=== PATIENT | male | born 1945 | race Caucasian/White ===

== ENCOUNTER 2023-03-20 08:19 | Day surgery (SDC) | payer MEDICARE ==
[~2023-03-20] VITALS: Ht 165.1 cm; Wt 78.0 kg
[2023-03-20] VITALS (12 sets, daily range): BP systolic 103–155; BP diastolic 41–110
[~2023-03-20 08:19] MED LIST: Aspir 8181 MG PO; METO50ER PO; NITR.4SL SL; TUMS500 MG PO; ZESTRIL40 M1 PO
--- NOTE | 2023-03-20 10:46 | NUR ---
PT BACK TO RECOVERY ROOM.
--- NOTE | 2023-03-20 11:03 | NUR ---
PT BACK TO RECOVERY ROOM FROM LAB. PT A&Ox4. PT SITTING UP IN RECLINER DRINKING COFFEE. FAMILY AT BEDSIDE.
--- NOTE | 2023-03-20 11:04 | NUR ---
AMLODIPINE SCRIPT CALLED TO [employer].
--- NOTE | 2023-03-20 11:59 | NUR ---
PT GIVEN LUNCH TRAY. 2 CC REMOVED FROM TR BAND. SITE SOFT AND NON-TENDER.
--- NOTE | 2023-03-20 12:08 | NUR ---
2CC REMOVED FROM TR BAND. SITE SOFT AND NON-TENDER PER PT. NO BLEEDING NOTED.
--- NOTE | 2023-03-20 12:23 | NUR ---
2CC REMOVED FROM TRBAND. SITE SOFT AND NON-TENDER. NO BLEEDING NOTED. PT FINISHED EATING LUNCH.
--- NOTE | 2023-03-20 12:42 | NUR ---
2CC REMOVED FROM TR BAND.
--- NOTE | 2023-03-20 12:48 | NUR ---
HEMATOMA NOTED ABOVE TR BAND. TR BAND REMOVED AND PRESSURE DRESSING APPLIED TO WRIST BY AALIYAH RM. NO BLEEDING NOTED.
--- NOTE | 2023-03-20 12:57 | NUR ---
SITE AROUND DRESSING SOFT AND NON-TENDER PER PT. NO BLEEDING NOTED.
--- NOTE | 2023-03-20 14:28 | NUR ---
DISCHARGE INSTRUCTIONS REVIEWED ALL QUESTIONS ANSWERED. PRESSURE DRESSING REMOVED FROM RIGHT RADIAL SITE; NO HEMATOMA, NO BLEEDING SOFT NON-TENDER WITH POLYMEM IN PLACE AND RIGHT WRIST BOARD IN PLACE. 20 G IV REMOVED FROM R AC WITH INTACT CANNULA. PT AMBULATED TO BR TO VOID. PT ESCORTED OUT VIA WHEELCHAIR ESCORT.
== END 2023-03-20 15:59 | disposition home or self-care (01) ==
LOC: MHTC 08:19
DX: I25.118 Atherosclerotic heart disease of native coronary artery with other forms of angina pectoris (principal); R07.9 Chest pain, unspecified; I35.0 Nonrheumatic aortic (valve) stenosis; E78.5 Hyperlipidemia, unspecified; N18.9 Chronic kidney disease, unspecified; I12.9 Hypertensive chronic kidney disease with stage 1 through stage 4 chronic kidney disease, or unspecified chronic kidney disease
CPT/HCPCS: 76937; 85347; 93454; 93571; 99152; 99153; C1769; C1887; C1894; J1644; J2250; J3010; J7030; J7050; Q9967

== ENCOUNTER 2024-08-19 06:13 | Day surgery (SDC) | payer MEDICARE ==
[~2024-08-19] VITALS: Ht 167.6 cm; Wt 75.1 kg
[~2024-08-19 06:13] MED LIST changes: +Balanced Salt Epinephrine Irrigation Solution 500 mL IR SCH; +Diazepam 5 MG Tab PO PRN; +Diazepam 5 MG Tab PO SCH; +Lidocaine HCl/Pf 1% 5 ML VIAL XX SCH; +Moxifloxacin HCL 0.5 MG/0.1 ML 0.4MLSYR RIGHTEYE SCH; +Ondansetron 4 MG SoluTab MM PRN; +PHENYLEPHRINE\\TROPICAMIDE\\TETRACAINE OPHTHALMIC DILATING SOLN RIGHTEYE PRN; +Povidone-Iodine 450 DROP/30 ML Solution ONE; +Povidone-Iodine 450 DROP/30 ML Solution RIGHTEYE SCH; +Tetracaine HCl/Pf 0.5% Opth Soln 4 ml ONE; +Triamcinolone Inj Susp 40 MG / ML 1ML Vial INJ SCH
[2024-08-19] MEDS ORDERED: Diazepam 10 MG Tab ONE (06:27)
--- NOTE | 2024-08-19 06:42 | NUR ---
08/19/24 0642 Hyacinth Cox 0642: PER PATIENT ANXIETY IS 05/18
[2024-08-19] MEDS ORDERED: METOPROLOL TART25 MG PO (06:50)
[2024-08-19] MEDS ORDERED: LISI20 PO (06:51)
[2024-08-19] MEDS ORDERED: RANOLAZINE ER500 M2 PO (06:52)
[2024-08-19] MEDS ORDERED: Triamcinolone Inj Susp 40 MG / ML 1ML Vial ONE ×2 (06:52→07:16)
[2024-08-19] MEDS ORDERED: Lidocaine HCl/Pf 1% 5 ML VIAL ONE (06:53)
[2024-08-19] MEDS ORDERED: Tetracaine HCl 0.5% Opth Soln 15 ml RIGHTEYE ONE (07:26)
--- NOTE | 2024-08-19 07:29 | NUR ---
08/19/24 0729 Mirtha Souza HR 54 R 20 O2 100 ON 8 L BLOW BY O2 BP 182/61 PT STATES NO DISCOMFORT, NO SIGN OF DISTRESS AT THIS TIME.
[2024-08-19 08:10] VITALS: BP 158/73
== END 2024-08-19 08:04 | disposition home or self-care (01) ==
LOC: ORSCSDS 06:13
PROVIDERS: Ophthalmology
PROC: 08RJ3JZ Replacement of Right Lens with Synthetic Substitute, Percutaneous Approach (ICD-10-PCS; principal; 2024-08-19 07:30)
DX: H25.813 Combined forms of age-related cataract, bilateral (principal); H40.019 Open angle with borderline findings, low risk, unspecified eye; H02.834 Dermatochalasis of left upper eyelid; H02.831 Dermatochalasis of right upper eyelid; Z79.82 Long term (current) use of aspirin; Z79.899 Other long term (current) drug therapy
CPT/HCPCS: A9270; J2003; J3301; V2632